=== PATIENT | female | born 1995 | race Hispanic/Latino ===

== ENCOUNTER 2022-10-13 11:57 | Day surgery (SDC) | payer MEDICAID, OTHER ==
[2022-10-13 12:09] VITALS: BMI 30.2
[2022-10-13] MEDS ORDERED: hydrALAZINE 20 MG/ML VIAL SLOW IVP PRN (12:59)
== END 2022-10-13 13:59 | disposition home or self-care (01) ==
LOC: CSHLD/OP 11:57
PROVIDERS: ATTEND Obstetrics & Gynecology
DX: O47.1 False labor at or after 37 completed weeks of gestation (principal); Z3A.37 37 weeks gestation of pregnancy; O99.333 Smoking (tobacco) complicating pregnancy, third trimester; F17.200 Nicotine dependence, unspecified, uncomplicated; Z79.899 Other long term (current) drug therapy
CPT/HCPCS: 99283

== ENCOUNTER 2022-10-16 09:22 | Day surgery (SDC) | payer OTHER ==
[2022-10-16 10:32] VITALS: BMI 28.9
[2022-10-16] MEDS ORDERED: hydrALAZINE 20 MG/ML VIAL SLOW IVP PRN (11:37)
[2022-10-16] MEDS ORDERED: Butorphanol Tartrate 1 MG/ML VIAL SLOW IVP PRN (11:38)
[2022-10-16] MEDS ORDERED: Lactated Ringer's 1,000 ML IV SCH (11:45)
[2022-10-16 12:22] LABS: Bilirubin Neg (Negative); Blood, Urine Negative (Negative); CAUTI Indications for Culture Dysuria,urgency,freq; Clarity Clear (Clear); Glucose, Urine (Dipstick) Normal (Negative); Ketone, Urine 15 mg/dL (Negative); Leukocyte 100 (Negative); Nitrite Negative (Negative); Protein, Urine (Dipstick) Negative (Neg-Trace); Specific Gravity, Urine 1.015 (1.005-1.030); Urobilinogen Normal mg/dL (Less than 2)
[2022-10-16 12:27] LABS: Urine Culture Reflex No No
[2022-10-16 12:31] LABS: Bacteria/HPF None Seen HPF (None Seen); RBC/HPF 0-3 HPF (0-3)
[2022-10-16 12:52] LABS: Amphetamine Not Detected (NotDetected); Barbiturates Screen Not Detected (NotDetected); Benzodiazepine Screen Not Detected (NotDetected); Cocaine Metabolite Screen Not Detected (NotDetected); Methadone Not Detected (NotDetected); Methamphetamine Not Detected (NotDetected); Opiate Screen Not Detected (NotDetected); Oxycodone Screen Not Detected (NotDetected); Phencyclidine (PCP) Not Detected (NotDetected); THC/Cannabinoid Screen Detected (NotDetected); Tricyclic Screen Not Detected (NotDetected)
== END 2022-10-16 13:50 | disposition home or self-care (01) ==
LOC: CSHLD/OP 09:22
PROVIDERS: ATTEND Family Medicine
DX: O47.1 False labor at or after 37 completed weeks of gestation (principal); O36.8330 Maternal care for abnormalities of the fetal heart rate or rhythm, third trimester, not applicable or unspecified; Z3A.38 38 weeks gestation of pregnancy
CPT/HCPCS: 80306; 81001; J0595

== ENCOUNTER 2022-10-16 15:29 | Inpatient (IN) | payer OTHER ==
[~2022-10-16 15:29] MED LIST: Bupivacaine 0.25% HCL 30 ML VIAL ONE; Bupivacaine HCl 0.5%/Epinephrine 1:200,000/PF 30 ml Vial ONE
[2022-10-16] MEDS ORDERED: hydrALAZINE 20 MG/ML VIAL SLOW IVP PRN ×2 (15:39→16:37)
[2022-10-16] MEDS: Lactated Ringer's 1,000 ML IV SCH ×2 (16:10→18:21)
[2022-10-16] MEDS ORDERED: Penicillin G Potassium 5 MILL.UNITS VIAL ONE (16:18)
[2022-10-16] MEDS ORDERED: Butorphanol Tartrate 1 MG/ML VIAL ONE (16:21)
[2022-10-16] MEDS ORDERED: Fentanyl 2 mcg/Bup 0.1% Cadd 100 ML ONE (16:27)
[2022-10-16] MEDS ORDERED: Ibuprofen 800 MG TAB PO PRN (16:37)
[2022-10-16] MEDS ORDERED: Butorphanol Tartrate 1 MG/ML VIAL SLOW IVP PRN (16:37)
[2022-10-16] MEDS ORDERED: Lidocaine 1% (PF) 30 ML VIAL SC PRN (16:37)
[2022-10-16] MEDS ORDERED: Ondansetron PF 4 MG/2 ML Vial IVP PRN ×2 (16:37→17:50)
[2022-10-16] MEDS ORDERED: Methylergonovine 0.2 MG/ML VIAL IM PRN (16:37)
[2022-10-16] MEDS ORDERED: Carboprost 250 MCG/ML AMP IM PRN (16:37)
[2022-10-16] MEDS ORDERED: Misoprostol 200 MCG TAB PR PRN (16:37)
[2022-10-16] MEDS ORDERED: Acetaminophen 500 MG TAB PO PRN (16:37)
[2022-10-16] MEDS ORDERED: Diphenoxylate HCl/Atropine Tablet PO PRN (16:37)
[2022-10-16] MEDS ORDERED: HYDROcodone/Acetaminophen 5/325 mg Tablet PO PRN (16:37)
[2022-10-16] MEDS ORDERED: Promethazine HCl 25 MG/ML VIAL IM PRN ×2 (16:37→17:50)
[2022-10-16] MEDS ORDERED: NS w/ Oxytocin 30 units 500 ML IV SCH ×2 (16:45)
[2022-10-16] MEDS ORDERED: Penicillin G Potassium 5 MILL.UNITS in Sodium Chloride 0.9% 100 ML IVPB SCH (16:45)
[2022-10-16 16:58] VITALS: BMI 30.2
[2022-10-16 16:58] LABS: #Eosinphils 0.1 10x3/uL (0.0-0.5); #Neutrophils 13.8 10x3/uL (1.5-8.4); %Basophils 0.2 % (0.0-2.0); %Eosinophils 0.4 % (0.0-6.0); %Lymphocytes 16.6 % (18.0-47.0); %Monocytes 5.7 % (0.0-10.0); %Neutrophils 76.4 % (40.0-75.0); Hemoglobin 13.2 g/dL (12.0-15.5); Mean Corpuscular HGB CONC 34.8 g/dL (32.0-36.0); Mean Corpuscular Hemoglobin 29.5 pg (27.0-33.0); Mean Corpuscular Volume 84.6 fl (81.6-98.3); Mean Platelet Volume 12.1 fl (7.4-10.4); Platelet Count 387 10x3/uL (150-450); RBC Distribution Width 14.2 % (11.5-14.5); Red Blood Cell (RBC) Count 4.48 10x6/uL (3.90-5.03)
[2022-10-16 17:33] LABS: Hemoglobin 12.3 g/dL (12.0-15.5); Mean Corpuscular HGB CONC 34.6 g/dL (32.0-36.0); Mean Corpuscular Hemoglobin 29.6 pg (27.0-33.0); Mean Corpuscular Volume 85.3 fl (81.6-98.3); Mean Platelet Volume 11.5 fl (7.4-10.4); Platelet Count 341 10x3/uL (150-450); RBC Distribution Width 14.3 % (11.5-14.5); Red Blood Cell (RBC) Count 4.16 10x6/uL (3.90-5.03); White Blood Cell (WBC) Count 14.6 10x3/uL (3.5-10.5)
[2022-10-16] MEDS: Fentanyl 2 mcg/Bupivacaine 0.1% Cassette 100 ML EPIDURAL SCH (17:45)
[2022-10-16] MEDS ORDERED: Moisturizing Cream (Eucerin) 113 GM JAR TOP PRN (17:50)
[2022-10-16] MEDS ORDERED: diphenhydrAMINE 50 MG/ML VIAL IVP PRN (17:50)
[2022-10-16] MEDS ORDERED: Naloxone HCl 0.4 mg/ml Vial IVP PRN ×2 (17:50)
[2022-10-16] MEDS ORDERED: ePHEDrine Sulfate 50 MG/10 ML VIAL SLOW IVP PRN (17:50)
[2022-10-16] MEDS ORDERED: Acetaminophen 325 MG TAB PO PRN (17:50)
[2022-10-16] MEDS ORDERED: Communication Order-Pharmacy FS SCH (18:00)
[2022-10-16 18:07] LABS: HBSAg Index 0.21 S/CO (0-0.99); Hep B Surf Ag Non-Reactive S/CO (NonReactive)
[2022-10-16 18:08] LABS: Syphilis Antibody Nonreactive (Nonreactive); Syphilis Antibody Index 0.04 S/CO (<1.00 Non-Reactive)
[2022-10-16] MEDS ORDERED: Lactated Ringer's 500 ML IV PRN (18:52)
[2022-10-16] MEDS ORDERED: NS w/ Oxytocin 30 units 500 ML ONE (20:21)
[2022-10-16] MEDS: Penicillin G 2.5 MILL.units 2.5 MILL.UNITS in Premix Bag 1 BAG IVPB SCH (20:22)
[2022-10-16] MEDS ORDERED: NS w/ Oxytocin 30 units 500 ML IVPB SCH (20:30)
[2022-10-16 20:38] LABS: SARS-CoV-2 NAA Rapid Test Not Detected (NotDetected)
[2022-10-17] MEDS: Fentanyl 2 mcg/Bupivacaine 0.1% Cassette 100 ML EPIDURAL SCH (01:08)
[2022-10-17] MEDS: Penicillin G 2.5 MILL.units 2.5 MILL.UNITS in Premix Bag 1 BAG IVPB SCH ×2 (01:37→03:26)
[2022-10-17] MEDS ORDERED: Lidocaine 1% (PF) 30 ML VIAL ONE (02:29)
[2022-10-17] MEDS ORDERED: hydrALAZINE 20 MG/ML VIAL SLOW IVP PRN (05:36)
[2022-10-17] MEDS ORDERED: Promethazine HCl 25 MG/ML VIAL IM PRN (05:36)
[2022-10-17] MEDS ORDERED: Ondansetron PF 4 MG/2 ML Vial IVP PRN (05:36)
[2022-10-17] MEDS ORDERED: Milk Of Magnesia 30 ML UDCUP PO PRN (05:36)
[2022-10-17] MEDS ORDERED: HYDROcodone/Acetaminophen 5/325 mg Tablet PO PRN (05:36)
[2022-10-17] MEDS ORDERED: Benzocaine-Menthol 82.5 ML CAN TOP PRN (05:36)
[2022-10-17] MEDS ORDERED: Bisacodyl 10 MG SUPP PR PRN (05:36)
[2022-10-17] MEDS ORDERED: Boostrix 0.5 ML (Tdap) VIAL (>/=7 yrs of age) IM ONE (05:36)
[2022-10-17] MEDS ORDERED: diphenhydrAMINE 25 MG CAP PO PRN (05:36)
[2022-10-17] MEDS: Ibuprofen 800 MG TAB PO SCH ×3 (06:20→22:40)
[2022-10-17] MEDS: Ferrous Sulfate 325 MG TAB PO SCH ×2 (09:28→18:38)
[2022-10-17] MEDS: Prenatal Vitamin 1 TAB PO SCH (09:28)
[2022-10-17] MEDS: Docusate 100 MG CAP PO SCH ×2 (09:29→20:04)
[2022-10-17] MEDS: HYDROcodone/Acetaminophen 5/325 mg Tablet PO PRN ×2 (14:22→20:04)
[2022-10-18] MEDS: Ibuprofen 800 MG TAB PO SCH ×3 (05:22→21:41)
[2022-10-18] MEDS: Ferrous Sulfate 325 MG TAB PO SCH ×2 (07:47→16:18)
[2022-10-18] MEDS: HYDROcodone/Acetaminophen 5/325 mg Tablet PO PRN ×3 (08:51→21:43)
[2022-10-18] MEDS: Docusate 100 MG CAP PO SCH ×2 (08:51→21:41)
[2022-10-18] MEDS: Prenatal Vitamin 1 TAB PO SCH (08:51)
[2022-10-19] MEDS: Ibuprofen 800 MG TAB PO SCH ×2 (05:31→13:18)
[2022-10-19 08:08] VITALS: BP 123/58; TEMP 98.7
[2022-10-19] MEDS: Ferrous Sulfate 325 MG TAB PO SCH ×2 (08:32→18:27)
[2022-10-19] MEDS: HYDROcodone/Acetaminophen 5/325 mg Tablet PO PRN ×2 (08:40→16:17)
[2022-10-19] MEDS: Prenatal Vitamin 1 TAB PO SCH (08:41)
[2022-10-19] MEDS: Docusate 100 MG CAP PO SCH (08:41)
== END 2022-10-19 19:25 | disposition home or self-care (01) | DRG 807 ==
LOC: CSHLD/OP 15:29 → CSHLD 17:02 → CSHPP 10-17 05:08
PROVIDERS: ADMIT Family Medicine; ATTEND Family Medicine
PROC: 10E0XZZ Delivery of Products of Conception, External Approach (ICD-10-PCS; principal; 2022-10-17)
PROC: 0W8NXZZ Division of Female Perineum, External Approach (ICD-10-PCS; 2022-10-17)
PROC: 0UQMXZZ Repair Vulva, External Approach (ICD-10-PCS; 2022-10-17)
PROC: 10907ZC Drainage of Amniotic Fluid, Therapeutic from Products of Conception, Via Natural or Artificial Opening (ICD-10-PCS; 2022-10-17)
DX: O42.02 Full-term premature rupture of membranes, onset of labor within 24 hours of rupture (principal); Z37.0 Single live birth; O70.0 First degree perineal laceration during delivery; Z3A.38 38 weeks gestation of pregnancy; Z20.822 Contact with and (suspected) exposure to COVID-19
CPT/HCPCS: 36415; 51702; 80306; 81001; 85025; 86780; 86850; 86900; 86901; 87340; 96360; 96361; 96375; 99283; 99285; J0595; J2405; J2540; J2550; J2590; J3490; J7120; S0020; U0002

== ENCOUNTER 2023-05-05 21:13 | Emergency (ER) | payer OTHER ==
[~2023-05-05 21:13] MED LIST changes: -Bupivacaine 0.25% HCL 30 ML VIAL ONE; -Bupivacaine HCl 0.5%/Epinephrine 1:200,000/PF 30 ml Vial ONE; +Iopamidol 300 61% 100 ML VIAL FS ONE
[2023-05-05 22:27] LABS: #Basophils 0.1 10x3/uL (0.0-0.2); #Eosinphils 0.3 10x3/uL (0.0-0.5); #Monocytes 0.9 10x3/uL (0.0-1.1); #Neutrophils 10.2 10x3/uL (1.5-8.4); %Basophils 0.3 % (0.0-2.0); %Eosinophils 2.2 % (0.0-6.0); %Lymphocytes 25.8 % (18.0-47.0); %Monocytes 5.9 % (0.0-10.0); %Neutrophils 65.4 % (40.0-75.0); Hemoglobin 11.9 g/dL (12.0-15.5); Mean Corpuscular HGB CONC 32.6 g/dL (32.0-36.0); Mean Corpuscular Hemoglobin 28.1 pg (27.0-33.0); Mean Corpuscular Volume 86.3 fl (81.6-98.3); Platelet Count 391 10x3/uL (150-450); RBC Distribution Width 14.2 % (11.5-14.5); Red Blood Cell (RBC) Count 4.23 10x6/uL (3.90-5.03); White Blood Cell (WBC) Count 15.7 10x3/uL (3.5-10.5)
[2023-05-05] MEDS ORDERED: Ketorolac Tromethamine 30 MG/ML VIAL ONE (22:29)
[2023-05-05] MEDS ORDERED: Morphine 4 MG/ML VIAL ONE (22:30)
[2023-05-05] MEDS ORDERED: Ondansetron PF 4 MG/2 ML Vial ONE (22:30)
[2023-05-05 22:31] LABS: BHCG - Serum Negative (NEGATIVE); Pregs Control Bar Appear? YES (CONTROL BAR)
[2023-05-05 22:32] LABS: Pregs Control Background? CLEAR/WHITE (CLR/WHITE)
[2023-05-05 22:38] LABS: ALT (SGPT) 13 U/L (8-55); AST (SGOT) 16 U/L (5-34); Albumin 3.7 g/dL (3.5-5.0); Alkaline Phosphatase 99 U/L (40-110); Anion Gap 12 mmol/L (10-20); BUN (Urea Nitrogen) 18 mg/dL (7.0-18.7); Bilirubin, Total Less than 0.2 mg/dL (0.2-1.2); Calc. Creatinine Clearance 0 mL/min (70-130); Calcium 9.1 mg/dL (7.8-10.44); Carbon Dioxide 25 mmol/L (22-29); Chloride 105 mmol/L (98-107); Estimated GFR 109; Globulin 2.7 g/dL (2.4-3.5); Glucose 93 mg/dL (70-105); Lipase 21 U/L (8-78); Potassium 4.1 mmol/L (3.5-5.1); Protein, Total 6.4 g/dL (6.0-8.3); Sodium 138 mmol/L (136-145)
[2023-05-05] MEDS ORDERED: diphenhydrAMINE 50 MG/ML VIAL ONE (23:35)
[2023-05-05] MEDS ORDERED: Haloperidol Lactate 5 MG/ML VIAL ONE (23:36)
== END 2023-05-06 00:04 | disposition home or self-care (01) ==
LOC: CSHERS 21:13
DX: K59.00 Constipation, unspecified (principal); F17.200 Nicotine dependence, unspecified, uncomplicated
CPT/HCPCS: 36415; 74177; 80053; 83690; 84703; 85025; J1200; J1630; J1885; J2270; J2405; Q9967